=== PATIENT | female | born 1965 | race Hispanic/Latino ===

== ENCOUNTER 2016-07-17 12:27 | Emergency (ER) | payer OTHER ==
[~2016-07-17] VITALS: Ht 152.4 cm; Wt 59.0 kg
[2016-07-17 12:08] VITALS: BP 130/82
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
[2016-07-17] MEDS ORDERED: Bacitracin Oint UD TOPIC ONE (13:13)
[2016-07-17 13:21] VITALS: BP 125/85
[2016-07-17] MEDS ORDERED: CEPHALEXIN500 MG ORAL (13:27)
[2016-07-17] MEDS ORDERED: IBUPROFEN600 MG ORAL (13:27)
--- NOTE | 2016-07-18 10:12 | Diagnostic Imaging Report ---
Indication: Trauma Technique: Continuous helical transaxial imaging of the maxillofacial structures obtained without intravenous contrast administration. Coronal 2-D reformats were also obtained. Study obtained in a Siemens sensation [address] Total Dose length Product (DLP): [address] Dose Index Volume (CTDIvol): 28 mGy Comparison: None Findings: There is a fracture of the right nasal bone with some soft tissue swelling. No other fractures are seen. The mandible, visualized part of the cervical spine, the orbit appear normal. The mastoids and paranasal sinuses are clear. The orbit appear symmetric. Impression: Nasal bone fracture The CT scanner at [facility] is accredited by the [employer] and the scans are performed using protocols designed to limit radiation exposure to as low as reasonably achievable to attain images of sufficient resolution adequate for diagnostic evaluation.
== END 2016-07-17 13:29 | disposition home or self-care (01) ==
LOC: EDBD 12:27 → EMR 13:20
DX: S02.2XXB Fracture of nasal bones, initial encounter for open fracture (principal); F32.9 Major depressive disorder, single episode, unspecified; Y09 Assault by unspecified means; Y92.410 Unspecified street and highway as the place of occurrence of the external cause; Y99.8 Other external cause status
CPT/HCPCS: 70486; 99284

== ENCOUNTER 2018-10-10 09:58 | Emergency (ER) | payer MEDICARE, OTHER ==
[~2018-10-10] VITALS: Ht 162.6 cm; Wt 59.0 kg
[~2018-10-10 09:58] MED LIST: ATORVASTATIN CA40 MG ORAL; CEPHALEXIN500 MG ORAL; IBUPROFEN600 MG ORAL; TRAMADOL HCL50 MG ORAL
[2018-10-10] MEDS ORDERED: ASPIRIN-LOW81 MG ORAL (09:59)
--- NOTE | 2018-10-10 10:03 | NUR ---
ED Nurse Note: pt was brought in ambulance from home c/o alcohol withdrawal, pt stated she has been drinkng for a month now and drank 2 bottles of beer earlier, pt stated that she has hx of depression and was taking zoloft and abilify for it, pt stated she has md appointment tomorrow at 9 am. pt is calm and cooperative, seen by anna. will continue to monitor.
--- NOTE | 2018-10-10 10:04 | NUR ---
ED Nurse Note: pt reported that she drank 2 bottles of beer.
[2018-10-10] MEDS ORDERED: LORazepam Inj 2mg/ml 1ml IV ONE (10:15)
[2018-10-10 10:30] VITALS: BP 138/81
[2018-10-10 10:32] LABS: BASOPHILS % (AUTO) 1.6 % (0.0-2.0); EOSINOPHILS % (AUTO) 4.3 % (0.0-3.0); HEMATOCRIT 39.9 % (37.0-47.0); HEMOGLOBIN 13.9 G/DL (12.0-16.0); LYMPHOCYTES % (AUTO) 28.2 % (20.0-45.0); MEAN CORPUSCULAR VOLUME 88 FL (80-99); MONOCYTES % (AUTO) 10.2 % (1.0-10.0); NEUTROPHILS % (AUTO) 55.8 % (45.0-75.0); PLATELET COUNT 121 K/UL (150-450); RED BLOOD COUNT 4.51 M/UL (4.20-5.40); RED CELL DISTRIBUTION WIDTH 12.3 % (11.6-14.8); WHITE BLOOD COUNT 8.3 K/UL (4.8-10.8)
[2018-10-10 10:41] LABS: ANION GAP 11 mmol/L (5-15); BLOOD UREA NITROGEN 8 mg/dL (7-18); CALCIUM 8.3 MG/DL (8.5-10.1); CARBON DIOXIDE 25 MMOL/L (21-32); CHLORIDE 98 MMOL/L (98-107); CREATININE 0.6 MG/DL (0.55-1.30); POTASSIUM 3.4 MMOL/L (3.5-5.1); SODIUM 134 MMOL/L (136-145)
[2018-10-10 10:48] LABS: ALANINE AMINOTRANSFERASE 37 U/L (12-78); ALBUMIN 3.9 G/DL (3.4-5.0); ALBUMIN/GLOBULIN RATIO 0.8 (1.0-2.7); ALKALINE PHOSPHATASE 129 U/L (46-116); ASPARTATE AMINO TRANSFERASE 80 U/L (15-37); BILIRUBIN,TOTAL 0.8 MG/DL (0.2-1.0)
[2018-10-10 10:50] LABS: APPEARANCE,URINE CLEAR; BILIRUBIN, URINE NEGATIVE (NEGATIVE); COLOR,URINE PALE YELLOW; GLUCOSE, URINE (UA) NEGATIVE (NEGATIVE); KETONES,URINE NEGATIVE (NEGATIVE); LEUKOCYTE ESTERASE ,URINE 1+ (NEGATIVE); NITRITE,URINE NEGATIVE (NEGATIVE); PH,URINE 6 (4.5-8.0); PROTEIN,URINE NEGATIVE (NEGATIVE); UROBILINOGEN,URINE NORMAL MG/DL (0.0-1.0)
--- NOTE | 2018-10-10 11:25 | NUR ---
ED Nurse Note: ermd on bedside, talking with the pt regarding the discharge plan pt able to verblized understanding. pt has no complains at the moment. vs with normal range. will continue to monitor.
[2018-10-10] MEDS ORDERED: LIBRIUM25 MG ORAL (12:24)
[2018-10-10 12:30] VITALS: BP 115/75
--- NOTE | 2018-10-10 12:30 | NUR ---
ER DISCHARGE NOTE: Patient is cleared to be discharged per ERMD, pt is aox4, on room air, with stable vital signs. pt was given dc and prescription instructions, pt was able to verbalize understanding, pt id band removed without complications. pt is able to ambulate with steady gait. pt took all belongings.
--- NOTE | 2018-10-10 12:52 | Emergency Room Report ---
History of Present Illness General Chief Complaint: Generalized Weakness Source: Medical Record Present Illness HPI 53-year-old female presents ED for evaluation. Brought in by EMS. Patient brought in from home for alcohol intoxication. States that she has been drinking for the last 2 days. States that she may be withdrawing. States that she is depressed because her . Denies SI or HI. Denies hearing voices. Denies drug use. No other aggravating relieving factors. Denies any other associated symptoms Allergies: Coded Allergies: No Known Allergies (Verified , 04/18/06) Patient History Past Medical History: none Past Surgical History: none Pertinent Family History: none Social History: Denies: smoking, alcohol use, drug use Now: No Immunizations: UTD Reviewed Nursing Documentation: PMH: Agreed; PSxH: Agreed Nursing Documentation-PMH Past Medical History: No History, Except For Hx Cardiac Problems: Yes Review of Systems All Other Systems: negative except mentioned in HPI Physical Exam Vital Signs Date Time Temp Pulse Resp B/P (MAP) Pulse Ox O2 Delivery O2 Flow Rate FiO2 10/10/18 09:55 96.8 102 20 117/76 (90) 98 Room Air Sp02 EP Interpretation: reviewed, normal General Appearance: no apparent distress, alert, GCS 15, non-toxic, other - intoxicated Head: normocephalic, atraumatic Eyes: bilateral eye normal inspection, bilateral eye PERRL ENT: hearing grossly normal, normal pharynx, no angioedema, normal voice Neck: full range of motion, supple/symm/no masses Respiratory: chest non-tender, lungs clear, normal breath sounds, speaking full sentences Cardiovascular #1: regular rate, rhythm, no edema Cardiovascular #2: 2+ carotid (R), 2+ carotid (L), 2+ radial (R), 2+ radial (L) , 2+ dorsalis pedis (R), 2+ dorsalis pedis (L) Gastrointestinal: normal bowel sounds, non tender, soft, non-distended, no guarding, no rebound Rectal: deferred Genitourinary: normal inspection, no CVA tenderness Musculoskeletal: back normal, gait/station normal, normal range of motion, non- tender Neurologic: alert, oriented x3, responsive, motor strength/tone normal, sensory intact, speech normal Psychiatric: no suicidal/homicidal ideation, no delusions, depressed affect, anxious, other - intoxicated Reflexes: 3+ bicep (R), 3+ bicep (L), 3+ tricep (R), 3+ tricep (L), 3+ knee (R) , 3+ knee (L) Skin: normal color, no rash, warm/dry, well hydrated Lymphatic: no adenopathy Medical Decision Making Diagnostic Impression: Primary Impression: Alcohol withdrawal Qualified Codes: F10.239 - Alcohol dependence with withdrawal, unspecified ER Course Hospital Course 53-year-old female presents ED complaining of shaking, stating he is in withdrawal. Chronic history of alcohol use Differential diagnoses include: Alcohol intoxication, drug abuse, opioid withdrawal, alcohol withdrawal, dehydration, drug seeking behavior Clinical course Patient placed on stretcher. On laboratory monitor. After initial history and physical I ordered labs, IV fluids, Ativan Labs reviewed-electrolytes okay, hemoglobin/hematocrit stable, no leukocytosis, alcohol level > 300, aspirin/Tylenol levels negative vitals stable. no signs of acute withdrawal or DTs. patient can be safely discharged to home Findings with patient. Safe for discharge for close outpatient follow-up. No evidence of SI or HI. Will provide referrals i. I feel this is a highly complex case requiring extensive working including EKG/Rhythm strip, Xray/CT/US, Blood/urine lab work, repeat exams while in ED, and administration of strong opiates/narcotics for pain control, admission to hospital or close patient follow up. Diagnosis - alcohol withdrawal Stable and discharged to home with prescription for Librium. Followup with PMD. Return to ED if symptoms recur or worsen Last Vital Signs Date Time Temp Pulse Resp B/P (MAP) Pulse Ox O2 Delivery O2 Flow Rate FiO2 10/10/18 12:30 98.0 81 15 115/75 98 10/10/18 10:30 Room Air Status: improved Disposition: HOME, SELF-CARE Condition: Stable Scripts Chlordiazepoxide (Chlordiazepoxide HCl) 25 Mg Capsule 25 MG ORAL THREE TIMES A DAY, #15 CAP 0 Refills Prov: Marciano Henry MD 10/10/18 Referrals: [facility] Patient Instructions: Alcohol Intoxication, [id number] Marciano Henry MD Oct 10, 2018 12:52
== END 2018-10-10 12:30 | disposition home or self-care (01) ==
LOC: EDBD 09:58 → EMR 10:30 → MERGE 10:30 → EMR 12:30
DX: F10.239 Alcohol dependence with withdrawal, unspecified (principal)
CPT/HCPCS: 36415; 80053; 80307; 81003; 85025; 96361; 96374; 96375; 99284; G0480; J2405; 80329

== ENCOUNTER 2018-10-20 14:17 | Emergency (ER) | payer MEDICARE, OTHER ==
[~2018-10-20] VITALS: Ht 152.4 cm; Wt 59.0 kg
[~2018-10-20 14:17] MED LIST changes: +ASPIRIN-LOW81 MG ORAL; +LIBRIUM25 MG ORAL
--- NOTE | 2018-10-20 14:40 | NUR ---
ED Nurse Note: Patient walked into c/o low back pain that radiates to left lower leg. patient denies any injury
[2018-10-20] MEDS ORDERED: Ketorolac 30mg Inj IM ONE (15:45)
--- NOTE | 2018-10-20 16:10 | Emergency Room Report ---
History of Present Illness General Chief Complaint: Back Pain-No Injury Source: Medical Record Present Illness HPI 53-year-old female presents to the emergency department complaining of 10 out of 10 severity right-sided low back pain that radiates down to the right knee x3 years. Patient reports she has her appointment with a specialist in 8 days. Patient states her primary care provider has her taking meloxicam she denies trauma or fall she reports her symptoms have been progressive she denies incontinence she reports shooting pain when walking sometimes. Patient states that she was told by her primary care doctor that she also may require some physical therapy. Denies fevers, chills, recent spinal procedures or history of cancer. Patient denies night sweats or significant changes in weight. No aggravating or relieving factors at this time Allergies: Coded Allergies: No Known Allergies (Verified , 04/18/06) Patient History Past Medical History: see triage record Past Surgical History: none Pertinent Family History: none Last Menstrual Period: menopause Now: No Reviewed Nursing Documentation: PMH: Agreed; PSxH: Agreed Nursing Documentation-PMH Past Medical History: No History, Except For Hx Cardiac Problems: No - high cholesterol Hx Hypertension: Yes Hx Pacemaker: No Hx Asthma: No Hx COPD: No Hx Diabetes: No Hx Cancer: No Hx Gastrointestinal Problems: No Hx Dialysis: No History Of Psychiatric Problem: Yes Hx Neurological Problems: No Hx Cerebrovascular Accident: No Hx Seizures: No Review of Systems All Other Systems: negative except mentioned in HPI Physical Exam Vital Signs Date Time Temp Pulse Resp B/P (MAP) Pulse Ox O2 Delivery O2 Flow Rate FiO2 10/20/18 14:34 97.9 81 16 92/63 (73) 99 Room Air Sp02 EP Interpretation: reviewed, normal General Appearance: alert, GCS 15, non-toxic, mild distress Head: normocephalic, atraumatic Eyes: bilateral eye normal inspection, bilateral eye PERRL ENT: hearing grossly normal, normal voice Neck: full range of motion Respiratory: lungs clear, normal breath sounds, speaking full sentences Cardiovascular #1: regular rate, rhythm Genitourinary: normal inspection, no CVA tenderness Musculoskeletal: back normal, gait/station normal, normal range of motion, tender - right paraspinal ttp along the lower lumbar and sacral musculature. TTP to the upper right glute. Neurologic: alert, oriented x3, responsive, motor strength/tone normal, sensory intact, normal gait, speech normal, grossly normal Psychiatric: judgement/insight normal Skin: normal color, no rash, warm/dry, well hydrated Medical Decision Making PA Attestation Dr. Jc is my supervising Physician whom patient management has been discussed with. Diagnostic Impression: Primary Impression: Sciatica of right side Additional Impression: Back pain Qualified Codes: M54.41 - Lumbago with sciatica, right side; G89.29 - Other chronic pain ER Course 53-year-old female presents to the emergency department complaining of 10 out of 10 severity right-sided low back pain that radiates down to the right knee x3 years. Patient reports she has her appointment with a specialist in 8 days. Patient states her primary care provider has her taking meloxicam she denies trauma or fall she reports her symptoms have been progressive she denies incontinence she reports shooting pain when walking sometimes. Patient states that she was told by her primary care doctor that she also may require some physical therapy. Denies fevers, chills, recent spinal procedures or history of cancer. Patient denies night sweats or significant changes in weight. No aggravating or relieving factors at this time Ddx considered but are not limited to Fracture, dislocation, contusion, epidural abscess, Sprain/Strain/Spasm Vital signs: are WNL, pt. is afebrile H&PE are most consistent with sciatica ORDERS: X-ray not required at this time, no spinous process tenderness ED INTERVENTIONS: -Pt. given cane -Lidoderm TP - IM Toradol 30mg. Re-Evaluation: pt. states pain has subsided with ED interventions DISCHARGE: At this time pt. is stable for d/c to home. Will provide printed patient care instructions, and any necessary prescriptions. Care plan and follow up instructions have been discussed with the patient prior to discharge. Last Vital Signs Date Time Temp Pulse Resp B/P (MAP) Pulse Ox O2 Delivery O2 Flow Rate FiO2 10/20/18 14:34 97.9 81 16 92/63 (73) 99 Room Air Status: improved Disposition: HOME, SELF-CARE Condition: Stable Scripts Lidocaine (Lidoderm) 1 Each Adh..patch 1 PATCH TOPIC DAILY, #30 PATCH 0 Refills Patch(es) may remain in place for up to 12 hours in any 24-hour period. Prov: Yocasta Gloria 10/20/18 Methocarbamol* (ROBAXIN-750*) 750 Mg Tablet 750 MG PO QID, #28 TAB 0 Refills Prov: Yocasta Gloria 10/20/18 Referrals: NON PHYSICIAN (PCP) Patient Instructions: Back Pain, Adult, Sciatica Additional Instructions: Take medications as directed. Follow up with a Primary Care Provider in 3-5 days, even if your symptoms have resolved. --Please review list of primary care clinics, if you do not already have a primary care provider Return sooner to ED if new symptoms occur, or current symptoms become worse. Do not drink alcohol, drive, or operate heavy machinery while taking Robaxin ( Muscle Relaxers) as this may cause drowsiness. - Please note that this Emergency Department Report was dictated using [employer] cutting machine operator helper technology software, occasionally this can lead to erroneous entry secondary to interpretation by the dictation equipment. Yocasta Gloria Oct 20, 2018 16:10
[2018-10-20] MEDS ORDERED: LIDODERM700 M1 TOPIC (16:12)
[2018-10-20] MEDS ORDERED: ROBAXIN-750750 MG PO (16:12)
[2018-10-20 16:13] VITALS: BP 99/61
--- NOTE | 2018-10-20 16:18 | NUR ---
ED Nurse Note: cane was provided to the patient as directed
--- NOTE | 2018-10-20 16:19 | NUR ---
ER DISCHARGE NOTE: Patient is cleared to be discharged per CRISTINA COOPER, pt is aox4, on room air, with stable vital signs. pt was given dc and prescription instructions, pt was able to verbalize understanding, pt id band removed without complications. pt is able to ambulate with cane. pt took all belongings.
[2018-10-20 16:20] VITALS: BP 99/61
== END 2018-10-20 16:19 | disposition home or self-care (01) ==
LOC: EMR 15:55
DX: M54.41 Lumbago with sciatica, right side (principal); G89.29 Other chronic pain; I10 Essential (primary) hypertension; E78.00 Pure hypercholesterolemia, unspecified
CPT/HCPCS: 96372; 99283; J1885

== ENCOUNTER 2018-10-28 16:49 | Emergency (ER) | payer MEDICARE, OTHER ==
[~2018-10-28] VITALS: Ht 162.6 cm; Wt 63.5 kg
[~2018-10-28 16:49] MED LIST changes: +LIDODERM700 M1 TOPIC; +ROBAXIN-750750 MG PO
[2018-10-28 16:56] VITALS: BP 98/52
--- NOTE | 2018-10-28 16:59 | NUR ---
ED Nurse Note: pt brought by [facility] from home due to right side leg pain. pt seen by [facility] few days ago for same sx. pt has appointment with PCP but unable to tolerated for pain. ambulatory with cane. AAO x4. respirations even and non-labored noted. will wait for the further order.
[2018-10-28] MEDS ORDERED: IBUPROFEN600 MG ORAL (17:03)
[2018-10-28] MEDS ORDERED: KENALOG 0.025%15 GM APPLIC (17:05)
--- NOTE | 2018-10-28 17:10 | NUR ---
ER DISCHARGE NOTE: Patient is cleared to be discharged per ERMD DR JARAMILLO, pt is aox4, on room air, with stable vital signs. pt was given dc and prescription instructions, pt was able to verbalize understanding, pt id band removed without complications. pt is able to ambulate with steady gait. pt took all belongings.
--- NOTE | 2018-10-28 17:10 | Emergency Room Report ---
History of Present Illness General Chief Complaint: Pain Source: Medical Record Present Illness HPI Patient is a 53-year-old female who presented after increased low back pain. Patient a prior history of similar symptoms in the past. She is recently been seen and given prescription for pain medications. Patient had prior history of skin rash. She denies any prior history of diabetes. She had been referred to semiconductor equipment technician by her primary care physician. Patient reports having pain worse with movement. She had been having some difficulty with ambulation and is currently walking with a cane. Allergies: Coded Allergies: No Known Allergies (Verified , 04/18/06) Patient History Past Medical History: see triage record Reviewed Nursing Documentation: PMH: Agreed; PSxH: Agreed Nursing Documentation-PMH Past Medical History: No History, Except For Hx Cardiac Problems: No - high cholesterol Hx Hypertension: Yes Hx Pacemaker: No Hx Asthma: No Hx COPD: No Hx Diabetes: No Hx Cancer: No Hx Gastrointestinal Problems: No Hx Dialysis: No Hx Neurological Problems: No Hx Cerebrovascular Accident: No Hx Seizures: No Review of Systems All Other Systems: negative except mentioned in HPI Physical Exam Vital Signs Date Time Temp Pulse Resp B/P (MAP) Pulse Ox O2 Delivery O2 Flow Rate FiO2 10/28/18 16:48 97.3 91 16 98/52 (67) 98 Room Air Sp02 EP Interpretation: reviewed, normal General Appearance: normal inspection, well appearing, no apparent distress, alert, GCS 15 Head: atraumatic ENT: normal ENT inspection, hearing grossly normal, normal voice Neck: normal inspection, full range of motion, supple, no bony tend Respiratory: normal inspection, lungs clear, normal breath sounds, no respiratory distress, no retraction, no wheezing Cardiovascular #1: regular rate, rhythm, no edema Gastrointestinal: normal inspection, normal bowel sounds, non tender, soft, no guarding, no hernia Genitourinary: no CVA tenderness Musculoskeletal: normal inspection, back normal, normal range of motion Neurologic: normal inspection, alert, oriented x3, responsive, investigations manager III-XII nml as tested, speech normal Psychiatric: normal inspection, judgement/insight normal, mood/affect normal Skin: other - scaly rash to knees and elbows Medical Decision Making Diagnostic Impression: Primary Impression: Psoriasis ER Course Patient presented for low back pain. Differential diagnosis include was not limited to arthritis, psoriasis, psoriatic arthritis, gout, among others. Patient has a benign exam and does not appear to require any further imaging or laboratory testing at this time. Patient is noted to have normal range of motion to her back. Patient was given IM Toradol for pain. She is also given prescription for topical steroid medication due to what appears to be psoriasis. Patient was advised outpatient follow-up with her primary care physician. She appears to be stable for discharge. Last Vital Signs Date Time Temp Pulse Resp B/P (MAP) Pulse Ox O2 Delivery O2 Flow Rate FiO2 10/28/18 16:56 97.3 91 16 98/52 98 Room Air Status: improved Disposition: HOME, SELF-CARE Condition: Stable Scripts Triamcinolone Acet (Triamcinolone Acetonide) 15 Gm Cream..g. 15 GM APPLIC DAILY, #15 GM Prov: Pino Jc MD 10/28/18 Ibuprofen* (MOTRIN*) 600 Mg Tablet 600 MG ORAL Q8H PRN for For Pain, #30 TAB 0 Refills Prov: Pino Jc MD 10/28/18 Patient Instructions: Psoriasis Pino Jc MD Oct 28, 2018 17:10
[2018-10-28 17:11] VITALS: BP 98/52
[2018-10-28] MEDS ORDERED: Ketorolac 60mg Inj IM ONE (17:15)
== END 2018-10-28 17:11 | disposition home or self-care (01) ==
LOC: EDBD 16:49 → EMR 17:07
DX: L40.9 Psoriasis, unspecified (principal); E78.00 Pure hypercholesterolemia, unspecified; I10 Essential (primary) hypertension
CPT/HCPCS: 96372; 99283

== ENCOUNTER 2018-12-02 11:03 | Emergency (ER) | payer OTHER ==
[~2018-12-02] VITALS: Ht 160 cm; Wt 63.5 kg
[~2018-12-02 11:03] MED LIST changes: +KENALOG 0.025%15 GM APPLIC
[2018-12-02 11:08] VITALS: BP 114/75
--- NOTE | 2018-12-02 11:27 | Emergency Room Report ---
History of Present Illness General Chief Complaint: Pain Source: Patient Present Illness HPI Patient is a 53-year-old female who presented after increased right-sided knee pain. Patient reports having pain for the past 9 months. She denies any change in pain. She denies any recent trauma. She had prior history of knee arthritis. Patient states that she been having increased pain with ambulation. She denies any fever. She had previous visits to this hospital and had previous injections which seem to have helped. She denies any other locations of pain at this time. Allergies: Coded Allergies: No Known Allergies (Verified , 04/18/06) Patient History Past Medical History: see triage record Now: No Reviewed Nursing Documentation: PMH: Agreed; PSxH: Agreed Nursing Documentation-PMH Past Medical History: No History, Except For Hx Cardiac Problems: No - high cholesterol Hx Hypertension: Yes Hx Pacemaker: No Hx Asthma: No Hx COPD: No Hx Diabetes: No Hx Cancer: No Hx Gastrointestinal Problems: No Hx Dialysis: No Hx Neurological Problems: No Hx Cerebrovascular Accident: No Hx Seizures: No Review of Systems All Other Systems: negative except mentioned in HPI Physical Exam Vital Signs Date Time Temp Pulse Resp B/P (MAP) Pulse Ox O2 Delivery O2 Flow Rate FiO2 12/02/18 11:08 98.4 93 20 114/75 95 Room Air General Appearance: well appearing, no apparent distress, alert, GCS 15 Head: normocephalic, atraumatic ENT: hearing grossly normal, normal voice Neck: full range of motion, supple Respiratory: no respiratory distress, speaking full sentences Cardiovascular #1: normal inspection, no edema Gastrointestinal: normal inspection, soft Musculoskeletal: non-tender, swelling - right knee, slight swelling, arthritic changes, no laxity Neurologic: alert, oriented x3, responsive, wearing apparel presser III-XII nml as tested, normal gait Psychiatric: mood/affect normal Skin: no rash Medical Decision Making Diagnostic Impression: Primary Impression: Arthritis ER Course Patient presented for right knee pain. Differential diagnosis include was not limited to arthritis, septic joint, contusion among others. Patient appears to have a arthritic right knee with some slight inflammation at this time. There does not appear to be any evidence of erythema or warmth. Patient's knee is ligaments appear to be stable. There is no vascular compromise distally.Patient reports having prior x-ray imaging to her knee. Patient was given an injection for Toradol. She is to follow-up with her primary care physician for recheck. She is given prescription for anti-inflammatory medications. Last Vital Signs Date Time Temp Pulse Resp B/P (MAP) Pulse Ox O2 Delivery O2 Flow Rate FiO2 12/02/18 11:08 98.4 93 20 114/75 (88) 95 Room Air Status: improved Disposition: HOME, SELF-CARE Condition: Stable Pino Jc MD Dec 02, 2018 11:27
[2018-12-02] MEDS ORDERED: IBUPROFEN400 MG ORAL (11:28)
[2018-12-02] MEDS ORDERED: PEPCID AC20 M2 PO (11:28)
[2018-12-02] MEDS ORDERED: Ketorolac 60mg Inj IM ONE (11:30)
[2018-12-02 11:46] VITALS: BP 118/72
--- NOTE | 2018-12-02 11:46 | NUR ---
ER DISCHARGE NOTE: Patient is cleared to be discharged per ERMD, pt is aox4, on room air, with stable vital signs. pt was given dc and prescription instructions, pt was able to verbalize understanding, pt id band removed. pt is able to ambulate with steady gait. pt took all belongings.
== END 2018-12-02 11:46 | disposition home or self-care (01) ==
LOC: EMR 11:28
DX: M17.11 Unilateral primary osteoarthritis, right knee (principal); I10 Essential (primary) hypertension; E78.00 Pure hypercholesterolemia, unspecified
CPT/HCPCS: 96372; 99283

== ENCOUNTER 2019-10-22 16:46 | Emergency (ER) | payer MEDICARE, OTHER ==
[~2019-10-22] VITALS: Ht 162.6 cm; Wt 53.1 kg
[~2019-10-22 16:46] MED LIST changes: +IBUPROFEN400 MG ORAL; +PEPCID AC20 M2 PO
--- NOTE | 2019-10-22 17:40 | NUR ---
ED Nurse Note:pt. came from home with c/o generalized body rash for 3 weeks, also eyes irritation
[2019-10-22 17:59] VITALS: BP 110/74
[2019-10-22 18:00] LABS: HEMOGLOBIN 14.3 G/DL (12.0-16.0); MEAN CORPUSCULAR VOLUME 94 FL (80-99); PLATELET COUNT 165 K/UL (150-450); RED CELL DISTRIBUTION WIDTH 13.2 % (11.6-14.8)
--- NOTE | 2019-10-22 18:05 | NUR ---
ED Nurse Note: pt tolerates lab draw well.
[2019-10-22 18:18] LABS: ANION GAP 9 mmol/L (5-15); BLOOD UREA NITROGEN 6 mg/dL (7-18); CALCIUM 8.2 MG/DL (8.5-10.1); CARBON DIOXIDE 25 MMOL/L (21-32); CHLORIDE 106 MMOL/L (98-107); CREATININE 0.6 MG/DL (0.55-1.30); POTASSIUM 3.4 MMOL/L (3.5-5.1); SODIUM 140 MMOL/L (136-145)
[2019-10-22 18:26] LABS: ALANINE AMINOTRANSFERASE 61 U/L (12-78); ALBUMIN 3.1 G/DL (3.4-5.0); ALBUMIN/GLOBULIN RATIO 0.7 (1.0-2.7); ALKALINE PHOSPHATASE 153 U/L (46-116); ASPARTATE AMINO TRANSFERASE 77 U/L (15-37); BILIRUBIN,TOTAL 0.6 MG/DL (0.2-1.0)
--- NOTE | 2019-10-22 18:47 | Emergency Room Report ---
History of Present Illness General Chief Complaint: Skin Rash/Abscess Source: Patient Present Illness HPI 54-year-old female with history of type 2 diabetes currently controlled with metformin here complaining of several months of a pruritic rash all over her body and dryness and 1 week of pain at the site of rash. Denies any fever and chills, come in contact with any new allergens. Denies chest pain, shortness of breath, fever and chills. Has not taken medication for symptom relief. Has not follow-up with primary care doctor in this regard. Chronic eczema noted all over body with superficial mild cellulitis and second area Allergies: Coded Allergies: No Known Allergies (Verified , 04/18/06) COVID-19 Screening Contact w/high risk pt: No Recent Travel to affected area: No Experienced COVID-19 symptoms?: No COVID-19 Testing performed CLIENT PARTNER: No Patient History Past Medical History: see triage record Past Surgical History: none Pertinent Family History: none Now: No Immunizations: UTD Reviewed Nursing Documentation: PMH: Agreed; PSxH: Agreed Nursing Documentation-PMH Past Medical History: No History, Except For Hx Cardiac Problems: No - high cholesterol Hx Hypertension: Yes Hx Pacemaker: No Hx Asthma: No Hx COPD: No Hx Diabetes: No Hx Cancer: No Hx Gastrointestinal Problems: No Hx Dialysis: No Hx Neurological Problems: No Hx Cerebrovascular Accident: No Hx Seizures: No Review of Systems All Other Systems: negative except mentioned in HPI Physical Exam Vital Signs Date Time Temp Pulse Resp B/P (MAP) Pulse Ox O2 Delivery O2 Flow Rate FiO2 10/22/19 16:49 98.6 128 16 110/74 (86) 98 Room Air Sp02 EP Interpretation: reviewed, normal General Appearance: no apparent distress, alert, GCS 15, non-toxic Head: normocephalic, atraumatic Eyes: bilateral eye normal inspection, bilateral eye PERRL ENT: hearing grossly normal, normal pharynx, no angioedema, normal voice Neck: full range of motion, supple, supple/symm/no masses Respiratory: chest non-tender, lungs clear, normal breath sounds, no rhonchi, no retraction, no wheezing, speaking full sentences Cardiovascular #1: regular rate, rhythm, no edema, no murmur Gastrointestinal: normal bowel sounds, non tender, soft, non-distended, no guarding, no rebound Rectal: deferred Genitourinary: no CVA tenderness Musculoskeletal: back normal, normal range of motion, no calf tenderness, gait/ station normal, non-tender Neurologic: alert, motor strength/tone normal, oriented x3, sensory intact, responsive, speech normal Psychiatric: judgement/insight normal, memory normal, mood/affect normal, no suicidal/homicidal ideation Skin: rash - Chronic eczema noted all over body with minor cellulitis superficially Lymphatic: no adenopathy Medical Decision Making PA Attestation All diagnoses and treatment plans were reviewed and discussed with my supervising physician Dr. Webster Diagnostic Impression: Primary Impression: Cellulitis Additional Impression: Infectious eczematoid dermatitis ER Course 54-year-old female with history of type 2 diabetes currently controlled with metformin here complaining of several months of a pruritic rash all over her body and dryness and 1 week of pain at the site of rash. Denies any fever and chills, come in contact with any new allergens. Denies chest pain, shortness of breath, fever and chills. Has not taken medication for symptom relief. Has not follow-up with primary care doctor in this regard. Chronic eczema noted all over body with superficial mild cellulitis and second area Ddx considered but are not limited to : Cellulitis, abscess, eczema, scabies, Vital signs: are WNL, pt. is afebrile H&PE are most consistent with: Infectious eczema, cellulitis ORDERS: Keflex, prednisone, triamcinolone cream, Motrin, CBC, CMP ED INTERVENTIONS: None required at this time. DISCHARGE: At this time pt. is stable for d/c to home. Will provide printed patient care instructions, and any necessary prescriptions. Care plan and follow up instructions have been discussed with the patient prior to discharge. Take medication as directed, follow-up with primary care doctor, if worsening symptoms return to the emergency room. Also referral to linter operator needed per request of your primary care provider Last Vital Signs Date Time Temp Pulse Resp B/P (MAP) Pulse Ox O2 Delivery O2 Flow Rate FiO2 10/22/19 17:59 98.6 16 110/74 98 Room Air 10/22/19 16:49 128 Disposition: HOME, SELF-CARE Condition: Stable Scripts Ibuprofen* (MOTRIN*) 600 Mg Tablet 600 MG ORAL THREE TIMES A DAY, #30 TAB Prov: Richelle Reynolds 10/22/19 Cephalexin* (KEFLEX*) 500 Mg Capsule 500 MG ORAL EVERY 6 HOURS for 7 Days, #28 CAP Prov: Richelle Reynolds 10/22/19 Triamcinolone Acet (Triamcinolone Acetonide) 80 Gm Cream..g. 2 GM APPLIC BID, #80 GM Prov: Richelle Reynolds 10/22/19 Prednisone* (PREDNISONE*) 20 Mg Tablet 40 MG ORAL DAILY for 5 Days, #10 TAB Prov: Richelle Reynolds 10/22/19 Patient Instructions: Cellulitis, [id number], Eczema Additional Instructions: Take medication as directed, follow with your primary doctor, if worsening symptoms return to the emergency room Richelle Reynolds Oct 22, 2019 18:47
[2019-10-22] MEDS ORDERED: IBUPROFEN600 M1 ORAL (18:49)
[2019-10-22] MEDS ORDERED: CEPHALEXIN500 MG ORAL (18:49)
[2019-10-22] MEDS ORDERED: KENALOG 0.1% CR15 GM APPLIC (18:49)
[2019-10-22] MEDS ORDERED: PREDNISONE20 MG ORAL (18:49)
[2019-10-22 19:01] VITALS: BP 115/80
== END 2019-10-22 19:01 | disposition home or self-care (01) ==
LOC: EMR 19:00
DX: L03.90 Cellulitis, unspecified (principal); L30.3 Infective dermatitis; E11.9 Type 2 diabetes mellitus without complications; Z79.84 Long term (current) use of oral hypoglycemic drugs; I10 Essential (primary) hypertension; E78.00 Pure hypercholesterolemia, unspecified
CPT/HCPCS: 36415; 80053; 85007; 85025; 99283

== ENCOUNTER 2020-06-26 21:32 | Emergency (ER) | payer MEDICARE, OTHER ==
[~2020-06-26] VITALS: Ht 152.4 cm; Wt 54.4 kg
[~2020-06-26 21:32] MED LIST changes: +IBUPROFEN600 M1 ORAL; +KENALOG 0.1% CR15 GM APPLIC; +PREDNISONE20 MG ORAL
--- NOTE | 2020-06-26 21:49 | NUR ---
pt arrived for abcess R axillary region since yesterday. pt denies fever/chills/nausea/diarrhea/vomiting. pt states hx dm, anxiety. pt states drinking beer & smoking cigars tonight. pt presents with rapid speech, able to answer rn questions completely. 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
[2020-06-26 21:50] VITALS: BP 127/83
[2020-06-26] MEDS ORDERED: Bactrim-DS 1 tab ORAL ONE (22:15)
[2020-06-26] MEDS ORDERED: BACTRIM DS TAB1 EAC1 ORAL (22:18)
--- NOTE | 2020-06-26 22:19 | Emergency Room Report ---
History of Present Illness General Chief Complaint: Skin Rash/Abscess Source: Patient Present Illness HPI This a 55-year-old female with a history of diabetes and anxiety. She presents with chief complaint of abscess to her right axilla. Is been there for 2 days. No drainage. Now more swollen and painful. Worse with palpation. Better with rest. Denies any other complaint. Never had this problem before. Pain is 7 out of 10. Allergies: Coded Allergies: No Known Allergies (Verified , 04/18/06) COVID-19 Screening Contact w/high risk pt: No Recent Travel to affected area: No Experienced COVID-19 symptoms?: No COVID-19 Testing performed DISABILITY PROGRAM NAVIGATOR: No Patient History Past Medical History: see triage record, old chart reviewed, DM Past Surgical History: other Pertinent Family History: none Social History: Denies: smoking Now: No Immunizations: other Reviewed Nursing Documentation: PMH: Agreed; PSxH: Agreed Nursing Documentation-PMH Past Medical History: No History, Except For Hx Cardiac Problems: No Hx Hypertension: No Hx Pacemaker: No Hx Asthma: No Hx COPD: No Hx Diabetes: Yes Hx Cancer: No Hx Gastrointestinal Problems: No Hx Dialysis: No History Of Psychiatric Problem: Yes - anxiety Hx Neurological Problems: No Hx Cerebrovascular Accident: No Hx Seizures: No Review of Systems Eye: Denies: eye pain, blurred vision ENT: Denies: ear pain, nose congestion, throat swelling Respiratory: Denies: cough, shortness of breath Cardiovascular: Denies: chest pain, palpitations Gastrointestinal: Denies: abdominal pain, diarrhea, nausea, vomiting Musculoskeletal: Denies: back pain, joint pain Skin: Denies: rash Neurological: Denies: headache, numbness Endocrine: Denies: increased thirst, increased urine Hematologic/Lymphatic: Denies: easy bruising All Other Systems: negative except mentioned in HPI Physical Exam Vital Signs Date Time Temp Pulse Resp B/P (MAP) Pulse Ox O2 Delivery O2 Flow Rate FiO2 06/26/20 21:41 98.1 85 18 127/83 (98) 97 Room Air Vitals normal Sp02 EP Interpretation: reviewed, normal General Appearance: well appearing, no apparent distress, alert Head: normocephalic, atraumatic Eyes: bilateral eye PERRL, bilateral eye EOMI ENT: hearing grossly normal, normal pharynx Neck: full range of motion, supple, no meningismus Respiratory: chest non-tender, lungs clear, normal breath sounds Cardiovascular #1: regular rate, rhythm, no murmur Gastrointestinal: normal bowel sounds, non tender, no mass, no organomegaly, no bruit, non-distended Musculoskeletal: back normal, normal range of motion, gait/station normal, other - Right axilla: There is an indurated area of 2 cm. Mild erythema. No drainage. Psychiatric: mood/affect normal Procedures Incision and Drainage Incision and Drainage : Consent: Verbal Site: Right axilla Blade Size: 11 I & D Procedure: betadine prep, sterile drapes applied Wound Location: upper extremity - Right axilla Anesthesia: 1% Lidocaine Volume Anesthetic (ccs): 2 Patient Tolerated: Well Complications: None Progress Area cleaned with Betadine. Local anesthetic 1% lidocaine without epinephrine. I made a 1 cm incision. There was small amount of pus expressed initially. Afterward there is thick cottage cheesy material expressed. Wound was cleaned and irrigated. Dressing placed. Patient taught procedure without any problem. Medical Decision Making Diagnostic Impression: Primary Impression: Infected sebaceous cyst ER Course Patient with an abscess of her sebaceous cyst. No evidence of necrotizing fasciitis or deep infection. Will discharge home. Last Vital Signs Date Time Temp Pulse Resp B/P (MAP) Pulse Ox O2 Delivery O2 Flow Rate FiO2 06/26/20 21:41 98.1 85 18 127/83 (98) 97 Room Air Status: improved Disposition: HOME, SELF-CARE Condition: Stable Scripts Trimethoprim/Sulfamethoxazole 160/800* (BACTRIM DS TABLET*) 1 Each Tablet 1 TAB ORAL Q12H, #14 TAB 0 Refills Prov: Mat Vang MD 06/26/20 Patient Instructions: Abscess Additional Instructions: Keep wound clean. Clean with hydroperoxide and apply antibiotic ointment. Follow-up with your doctor in 2 to 3 days for recheck. Return if symptoms worsen. Mat Vang MD Jun 26, 2020 22:19
[2020-06-26 22:20] VITALS: BP 122/80
== END 2020-06-26 22:20 | disposition home or self-care (01) ==
LOC: EMR 22:05
DX: L72.3 Sebaceous cyst (principal); E11.9 Type 2 diabetes mellitus without complications
CPT/HCPCS: 10060; 99282